=== PATIENT | male | born 1960 | race Caucasian/White ===

== ENCOUNTER 2021-09-14 09:23 | Outpatient (CLI) | payer OTHER, SELFPAY ==
--- NOTE | 2021-09-14 09:34 | XRR_ITS ---
PROCEDURE INFORMATION: Exam: XR Left Ankle Exam date and time: 09/14/2021 9:44 AM Age: 61 years old Clinical indication: Pain; Ankle; Left; Additional info: L achilles tendon/l ankle pain TECHNIQUE: Imaging protocol: XR Left ankle. Views: 3 or more views. COMPARISON: No relevant prior studies available. FINDINGS: Bones/joints: Small calcified heel spur. Mild tibiotalar joint osteoarthritis. Soft tissues: Normal. Vasculature: Scattered vascular calcifications. XR/XR ankle LT min 3V* [id number] IMPRESSION: 1. Small calcified heel spur. 2. Mild tibiotalar joint osteoarthritis. 3. Scattered vascular calcifications.
== END 2021-09-14 09:24 | disposition home or self-care (01) ==
LOC: RAD 09:25
PROVIDERS: Family Provider Family Medicine; Visit Provider Nurse Practitioner Family
DX: M19.09 Primary osteoarthritis, other specified site (principal); M79.673 Pain in unspecified foot; R22.41 Localized swelling, mass and lump, right lower limb
CPT/HCPCS: 73610

== ENCOUNTER 2021-10-22 07:38 | Outpatient (CLI) | payer OTHER, SELFPAY ==
--- NOTE | 2021-10-22 07:58 | MR_ITS ---
WS: [id number] MRI LEFT ANKLE NONCONTRAST TECHNIQUE: Sagittal proton density, sagittal STIR, axial proton density, axial T1, axial T2 fat sat, coronal proton density, coronal proton density fat sat, coronal T2 fat sat. CLINICAL INFORMATION: Achilles Tear COMPARISON: None. FINDINGS: Normal ankle mortise. Normal talus and calcaneus. Normal talar dome. No acute fractures. Normal alfonzo avicular articulation. Normal navicular. Normal cuboid. Normal cuneiforms. Small amount of tenosynovi tis along the peroneal tendon sheaths. Tenosynovitis along the tibialis posterior. Achilles tendon appears intact. Normal signal within the Achilles. Normal Achilles insertion calcaneu s. Diffuse edema about the Achilles tendon along the ventral surface and Kagers fat pad. Small fluid col lection in the fat pad measuring 1.0 x 1.7 x 3.3 cm. Small amount of fluid in the retrocalcaneal burs a. No tendon thickening with only minor tendinosis. Findings likely due to paratenonitis. In additio n there is a tiny suspected ventral tear just proximal to the insertion with a small amount of focal fluid in this area. MR/MR ankle LT wo con* [id number] IMPRESSION: 1. 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 2. Minimal if any tendinosis. No significant Achilles thickening. 3. Diffuse fluid and soft tissue edema along the ventral Achilles in the lower leg extending to the ankle. Fluid and edema involving Kagers fat pad. Fluid in the retrocalcaneal bursa. 4. Moderate ankle effusion. 5. No other acute findings.
== END 2021-10-22 07:39 | disposition home or self-care (01) ==
PROVIDERS: Visit Provider Podiatrist Foot & Ankle Surgery
DX: M67.88 Other specified disorders of synovium and tendon, other site (principal); M25.472 Effusion, left ankle
CPT/HCPCS: 73721

== ENCOUNTER 2021-11-02 06:00 | Outpatient (RCR) | payer OTHER, SELFPAY | END 2021-11-11 23:59 | disposition home or self-care (01) | LOC: SPT 06:00 | PROVIDERS: Referring Provider Podiatrist Foot & Ankle Surgery; Visit Provider Podiatrist Foot & Ankle Surgery | DX: M76.62 Achilles tendinitis, left leg (principal) | CPT/HCPCS: 97035; 97110; 97140; 97161 ==

== ENCOUNTER 2021-11-12 06:00 | Outpatient (RCR) | payer OTHER, SELFPAY | END 2021-12-12 23:59 | disposition home or self-care (01) | LOC: SPT 06:00 | PROVIDERS: Referring Provider Podiatrist Foot & Ankle Surgery; Visit Provider Podiatrist Foot & Ankle Surgery | DX: M76.62 Achilles tendinitis, left leg (principal) | CPT/HCPCS: 97035; 97110; 97140 ==